=== PATIENT | male | born 1960 | race Caucasian/White ===

== ENCOUNTER 2024-01-14 00:22 | Emergency (ER) | payer MEDICARE, OTHER ==
[~2024-01-14] VITALS: Ht 167.6 cm; Wt 81.6 kg
[2024-01-14 00:32] VITALS: BP 165/69; PULSE 67; RESP 20; TEMP 98.2; O2SAT 97
[2024-01-14 03:00] VITALS: BP 126/46; PULSE 57; RESP 14; O2SAT 94
== END 2024-01-14 03:00 | disposition home or self-care (01) ==
LOC: MED 00:22
DX: F41.9 Anxiety disorder, unspecified (principal); I10 Essential (primary) hypertension; Z86.73 Personal history of transient ischemic attack (TIA), and cerebral infarction without residual deficits
CPT/HCPCS: 82948; 99283